=== PATIENT | female | born 1995 | race American Indian/Alaskan Native ===

== ENCOUNTER 2018-10-07 17:54 | Emergency (ER) | payer OTHER ==
--- NOTE | 2018-10-07 18:16 | Emergency Department Report ---
Blank Doc - Documentation Documentation: 23 Y/O WITH LOWER ABDOMINAL PAIN AND NAUSEA. POSSOBLE pLAN UA AND UPT.
[2018-10-07 18:52] LABS: Bilirubin,Urine NEG (Negative); Blood,Urine NEG (Negative); Color,Urine Yellow (Yellow); Mucus,Urine 3+ /HPF; Protein,Urine <15 mg/dL mg/dL (Negative); RBC,Urine < 1.0 /HPF (0.0-6.0)
[2018-10-07 18:56] LABS: HCG Qualitative,Urine Positive (Negative)
--- NOTE | 2018-10-07 21:47 | Emergency Department Report ---
ED N/V/D HPI - General Chief complaint: Nausea/Vomiting/Diarrhea Stated complaint: NAUSEA/BACK/CHEST PAIN Time Seen by Provider: 10/07/18 18:14 Source: patient Mode of arrival: Ambulatory Limitations: No Limitations - History of Present Illness Initial comments: 23-year-old [place] female presents for nausea with back pain and has pain for 3 days. Patient is taking. She reports the pain is upper back. She denies any vomiting denies any vaginal bleeding vaginal discharge. Patient reports the pain is worse with movement and better with rest. Patient is 2 para 1. test at home was negative. MD complaint: nausea Onset/Timin -: days(s) Associated Abdominal Pain: No Improves with: rest Worsens with: none Associated Symptoms: denies: cough, fever/chills, headaches, loss of appetite - Related Data Previous Rx's Medication Instructions Recorded Last Taken Type Vit-Fe Fumar-FA [ 1 tab PO QDAY #90 tablet 10/07/18 Unknown Rx Vitamin] Allergies Allergy/AdvReac Type Severity Reaction Status Date / Time No Known Allergies Allergy Unverified 10/07/18 17:56 ED Review of Systems ROS: Stated complaint: NAUSEA/BACK/CHEST PAIN Other details as noted in HPI Comment: All other systems reviewed and negative ED Past Medical Hx - Past Medical History Previous Medical History?: No - Surgical History Past Surgical History?: No - Social History Smoking Status: Never Smoker Substance Use Type: None - Medications Home Medications: Home Medications Medication Instructions Recorded Confirmed Last Taken Type Vit-Fe Fumar-FA [ 1 tab PO QDAY #90 tablet 10/07/18 Unknown Rx Vitamin] ED Physical Exam - General Limitations: No Limitations General appearance: alert, in no apparent distress - Head Head exam: Present: atraumatic, normocephalic - Eye Eye exam: Present: normal appearance - ENT ENT exam: Present: mucous membranes moist - Neck Neck exam: Present: normal inspection - Respiratory Respiratory exam: Present: normal lung sounds bilaterally. Absent: respiratory distress - Cardiovascular Cardiovascular Exam: Present: regular rate, normal rhythm. Absent: systolic murmur, diastolic murmur, rubs, gallop - GI/Abdominal GI/Abdominal exam: Present: soft, normal bowel sounds - Neurological Exam Neurological exam: Present: alert, oriented X3 - Psychiatric Psychiatric exam: Present: normal affect, normal mood - Skin Skin exam: Present: warm, dry, intact, normal color. Absent: rash ED Course Vital Signs 10/07/18 10/07/18 18:09 22:29 Temperature 98.5 F 98.7 F Pulse Rate 90 72 Respiratory 18 18 Rate Blood Pressure 137/82 Blood Pressure 146/92 [Left] O2 Sat by Pulse 99 99 Oximetry Critical care attestation.: If time is entered above; I have spent that time in minutes in the direct care of this critically ill patient, excluding procedure time. ED Disposition Clinical Impression: , Nausea Disposition: DC-01 TO HOME OR SELFCARE Is pt being admited?: No Does the pt Need Aspirin: No Condition: Stable Instructions: Morning Sickness (ED), (ED) Additional Instructions: Tylenol for pain. Take vitamins as prescribed. Follow up with [facility]. Prescriptions: Vit-Fe Fumar-FA [ Vitamin] 1 tab PO QDAY #90 tablet Referrals: [facility] [Primary Care Provider] - 3-5 Days [facility] [Provider Group] - 3-5 Days
[2018-10-07] MEDS ORDERED: TYLENOL PO ONE (21:51)
[2018-10-07 22:31] VITALS: BP 146/92
== END 2018-10-07 22:31 | disposition home or self-care (01) ==
LOC: ED 17:54
DX: O26.891 Other specified pregnancy related conditions, first trimester (principal); R11.0 Nausea
CPT/HCPCS: 81001; 81025; 99283